=== PATIENT | male | born 1945 | race Caucasian/White ===

== ENCOUNTER 2020-07-29 15:50 | Inpatient (IN) | payer OTHER ==
[~2020-07-29] VITALS: Ht 182.9 cm; Wt 108.3 kg
--- NOTE | 2020-07-29 16:29 | NUR ---
LATE ENTRY DUE TO PATIENT CARE: THIS IS A 75 YO MALE SENT FROM [facility] FOR PACEMAKER PLACEMENT, PATIENT HAD 3 SYNCOPAL EVENTS ON GOLF COURSE TODAY, WAS FOUND TO HAVE INTERMITTENT 3RD DEGREE HEART BLOCK. PATIENT DENIES ANY DIZINESS/LIGHTHEADEDNESS/SOB AT THIS TIME. STATES HE FELT DIZZY BEFORE HE SYNCOPIZED ON GOLF COURSE. UNKNOWN LOC, DENIES ANY TRAUMA. ALL MONITORING IN PLACE, 3RD DEGREE HEART BLOCK NOTED. PATIENT CONNECTED TO PORTABLE MONITOR ON [employer] C[employer] FOR POTENTIAL PACING PER . DENIES NEEDS AT THIS TIME, LUIS ALFREDO PINK. CALL LIGHT IN REACH
--- NOTE | 2020-07-29 17:32 | NUR ---
ADMITTING MD IN ROOM
[2020-07-29] MEDS ORDERED: INDO50CA15 PO (17:47)
[2020-07-29] MEDS ORDERED: ONDANSETRON 2MG/ML, 2ML IVPush PRN (18:00)
[2020-07-29] MEDS ORDERED: ONDANSETRON ODT 4 MG PO PRN (18:00)
--- NOTE | 2020-07-29 18:35 | NUR ---
PATIENT RESTING ON GURNEY, RESPIRATIONS EVEN AND UNLABORED. VSS, NADN, PADS IN PLACE CONNECTED TO PORTABLE MONITOR. CALL LIGHT IN REACH
--- NOTE | 2020-07-29 19:00 | NUR ---
ATTEMPTED TO CALL REPORT X1
--- NOTE | 2020-07-29 19:23 | NUR ---
ATTEMPT TO CALL REPORT X2, NO ANSWER ON TELE
--- NOTE | 2020-07-29 19:35 | NUR ---
REPORT GIVEN TO DAMASO MARIA. PLAN OF CARE DISCUSSED
[2020-07-29 19:57] VITALS: BP 137/90
[2020-07-29 20:03] VITALS: BP 137/70
[2020-07-29] MEDS: SODIUM CHLORIDE 0.9% 1,000 ML IV SCH (20:59)
[2020-07-29] MEDS: HEPARIN 5,000 UNITS/ML, 1ML SQ SCH (20:59)
[2020-07-30 01:43] VITALS: BP_SYST 130; BP_SYST 94; BP_DIAS 57; BP_DIAS 64
[2020-07-30 04:06] VITALS: BP 104/64
[2020-07-30] MEDS: HEPARIN 5,000 UNITS/ML, 1ML SQ SCH ×3 (04:09→16:42)
[2020-07-30 05:17] LABS: ANION GAP 4 mmol/L (5-15); CALCIUM 8.8 mg/dL (8.5-10.1); CHLORIDE 110 mmol/L (98-107)
[2020-07-30 05:18] LABS: CREATININE 1.34 mg/dL (0.7-1.3)
[2020-07-30 07:25] VITALS: BP 112/71
[2020-07-30] MEDS ORDERED: CEFAZOLIN PMX 1GM/50ML 50 ML IVPB ONE (08:30)
[2020-07-30 08:31] LABS: INTERNATIONAL NORMALIZED RATIO 1.08 (0.93-1.1); PROTHROMBIN TIME 11.4 Seconds (9.6-11.5)
[2020-07-30 08:33] LABS: MEAN CORPUSCULAR HEMOGLOBIN 32.4 pg (27.5-34.5); MEAN CORPUSCULAR HGB CONC 34.2 g/dL (33.2-36.2); MEAN PLATELET VOLUME 8.8 fL (7.4-10.4); PLATELET COUNT 191 x10^3/uL (130-400); RED BLOOD COUNT 4.69 x10^6/uL (4.38-5.82)
[2020-07-30 08:42] LABS: MD YES
[2020-07-30] MEDS ORDERED: CEFAZOLIN 1,000 MG ONE (08:45)
[2020-07-30] MEDS ORDERED: MIDAZOLAM 1 MG/ML, 5ML ONE (08:45)
[2020-07-30] MEDS ORDERED: FENTANYL PF 250 MCG/5ML ONE (08:45)
[2020-07-30] MEDS ORDERED: LIDOCAINE 1%, 20ML ONE (08:45)
[2020-07-30] MEDS ORDERED: CEFAZOLIN PMX 1GM/50ML 50 ML ONE (08:45)
[2020-07-30] MEDS: SODIUM CHLORIDE 0.9% 1,000 ML IV SCH ×3 (08:49→16:37)
[2020-07-30 08:56] LABS: EOS#(MANUAL) 0.09 x10^3/uL (0.0-0.4); EOS% (MANUAL) 1 % (1-7); LYMPHS% (MANUAL) 20 % (22-44); MONOS#(MANUAL) 0.36 x10^3/uL (0.3-2.7); MONOS% (MANUAL) 4 % (2-9); SEG#(MANUAL) 6.75 x10^3/uL (1.8-6.8); SEGS% (MANUAL) 75 % (42-75)
[2020-07-30 08:57] LABS: <PLATELET ESTIMATE> ADEQUATE; <PLT MORPHOLOGY> NORMAL PLT MORPH; <RBC MORPHOLOGY> NORMAL
[2020-07-30 10:04] LABS: FREE T4 (FREE THYROXINE) 1.06 ng/dL (0.76-1.46)
[2020-07-30] MEDS ORDERED: HOLD MEDICATION MC PRN (10:30)
[2020-07-30] MEDS ORDERED: ACETAMINOPHEN 325 MG TABLET PO PRN (10:30)
[2020-07-30 12:43] VITALS: BP 113/72
[2020-07-30] MEDS: CEFAZOLIN PMX 1GM/50ML 50 ML IVPB SCH (16:53)
[2020-07-30] MEDS: SODIUM CHLORIDE FLUSH 10ML SYR IVF SCH (20:16)
[2020-07-30 20:20] VITALS: BP 146/89
[2020-07-31] MEDS: SODIUM CHLORIDE 0.9% 1,000 ML IV SCH ×3 (00:30→08:55)
[2020-07-31] MEDS: CEFAZOLIN PMX 1GM/50ML 50 ML IVPB SCH (01:31)
[2020-07-31 01:33] VITALS: BP 128/68
[2020-07-31 06:16] LABS: ANION GAP 5 mmol/L (5-15); CALCIUM 8.6 mg/dL (8.5-10.1); CHLORIDE 111 mmol/L (98-107); CREATININE 1.19 mg/dL (0.7-1.3)
[2020-07-31 08:15] VITALS: BP 133/90
[2020-07-31] MEDS: HEPARIN 5,000 UNITS/ML, 1ML SQ SCH (08:55)
[2020-07-31] MEDS: SODIUM CHLORIDE FLUSH 10ML SYR IVF SCH (09:51)
== END 2020-07-31 12:15 | disposition home or self-care (01) | DRG 242 ==
LOC: ED 16:28 → EDIP 17:38 → 5SO 19:45 → DCLOUNGE 07-31 12:11
PROVIDERS: ADMIT Family Medicine; ATTEND Family Medicine
PROC: 0JH606Z Insertion of Pacemaker, Dual Chamber into Chest Subcutaneous Tissue and Fascia, Open Approach (ICD-10-PCS; principal; 2020-07-30)
PROC: 02H63JZ Insertion of Pacemaker Lead into Right Atrium, Percutaneous Approach (ICD-10-PCS; 2020-07-30)
PROC: 02HK3JZ Insertion of Pacemaker Lead into Right Ventricle, Percutaneous Approach (ICD-10-PCS; 2020-07-30)
DX: I44.1 Atrioventricular block, second degree (principal); N17.0 Acute kidney failure with tubular necrosis; J98.11 Atelectasis; I10 Essential (primary) hypertension; E03.9 Hypothyroidism, unspecified; Z96.651 Presence of right artificial knee joint; E66.9 Obesity, unspecified; R00.1 Bradycardia, unspecified; Z79.899 Other long term (current) drug therapy; Z87.891 Personal history of nicotine dependence; Z68.32 Body mass index [BMI] 32.0-32.9, adult
CPT/HCPCS: 33208; 36415; 99285; J3490; 71045; 80048; 83735; 84100; 84439; 84443; 85025; 85610; 93005; 93306; 93880; 99156; 99157; C1779; C1785; C1892; G0378; J0690; J1644; J2250; J3010; J7030

== ENCOUNTER → 2020-09-06 | Outpatient (CLI) | payer OTHER, MEDICARE ==
[~2020-09-06] MED LIST: INDO50CA15 PO
== END | disposition home or self-care (01) ==
LOC: STAR 09:08
PROVIDERS: ATTEND Anesthesiology
DX: Z20.828 Contact with and (suspected) exposure to other viral communicable diseases (principal)
CPT/HCPCS: 87635

== ENCOUNTER 2020-09-12 08:23 | Day surgery (SDC) | payer OTHER, MEDICARE ==
[~2020-09-12] VITALS: Ht 182.9 cm; Wt 103.1 kg
[2020-09-12] MEDS ORDERED: SODIUM CHLORIDE 0.9% 1,000 ML IV ONE (09:00)
[2020-09-12 09:01] VITALS: BP 118/64
[2020-09-12] MEDS ORDERED: PLEASE ENTER HEIGHT AND WEIGHT MC SCH (09:30)
[2020-09-12 09:36] LABS: BASOPHILS % (AUTO) 1 % (0-1); EOSINOPHILS % (AUTO) 2 % (1-7); LYMPHOCYTES % (AUTO) 17 % (22-44); MEAN CORPUSCULAR HEMOGLOBIN 32.3 pg (27.5-34.5); MEAN CORPUSCULAR HGB CONC 34.7 g/dL (33.2-36.2); MEAN PLATELET VOLUME 7.2 fL (7.4-10.4); MONOCYTES % (AUTO) 10 % (2-9); NEUTROPHILS % (AUTO) 70 % (42-75); PLATELET COUNT 212 x10^3/uL (130-400); RED BLOOD COUNT 4.92 x10^6/uL (4.38-5.82); RED CELL DISTRIBUTION WIDTH 14.1 % (9.4-14.8)
[2020-09-12 09:37] LABS: MD NO
[2020-09-12 09:44] LABS: ANION GAP 2 mmol/L (5-15); CALCIUM 9.5 mg/dL (8.5-10.1); CHLORIDE 108 mmol/L (98-107); CREATININE 1.31 mg/dL (0.7-1.3)
== END 2020-09-12 10:00 | disposition home or self-care (01) ==
LOC: CACL 08:23
PROVIDERS: ATTEND Internal Medicine Clinical Cardiac Electrophysiology
DX: I48.0 Paroxysmal atrial fibrillation (principal); Z53.8 Procedure and treatment not carried out for other reasons; Z95.0 Presence of cardiac pacemaker
CPT/HCPCS: 36415; 80048; 85025; 92960; 93005